=== PATIENT | male | born 1990 | race Caucasian/White ===

== ENCOUNTER 2021-07-19 15:26 | Emergency (ER) | payer BC ==
[2021-07-19] MEDS ORDERED: Sodium Chloride 0.9% 10 ML Syringe FLUSH PRN (15:50)
[2021-07-19] MEDS ORDERED: Metoclopramide 10 MG/2 ML SDV IVPUSH ONE (15:50)
[2021-07-19] MEDS ORDERED: diphenhydrAMINE 50 MG/ML SDV IVPUSH ONE (15:50)
[2021-07-19] MEDS ORDERED: Ketorolac 30 MG/ML SDV IVPUSH ONE (15:50)
== END 2021-07-19 17:02 | disposition home or self-care (01) ==
LOC: JD.ED 15:26
DX: G43.909 Migraine, unspecified, not intractable, without status migrainosus (principal); F17.210 Nicotine dependence, cigarettes, uncomplicated
CPT/HCPCS: 96374; 96375; 99283; J1200; J1885; J2765; J3490

== ENCOUNTER 2023-02-06 19:51 | Emergency (ER) | payer BC | END 2023-02-06 21:06 | disposition home or self-care (01) | LOC: JD.ED 19:51 | DX: R60.0 Localized edema (principal); F17.210 Nicotine dependence, cigarettes, uncomplicated | CPT/HCPCS: 99283 ==